=== PATIENT | female | born 1985 | race Caucasian/White ===

== ENCOUNTER 2016-12-21 17:59 | Emergency (ER) | payer MEDICAID ==
[2016-12-21] MEDS ORDERED: NS 0.9% 1000 ML* 1,000 ML IV ONE (19:15)
[2016-12-21] MEDS ORDERED: Metoclopramide IV* 5 MG/ML 2 ML VIAL IV SLOW PU ONE (19:15)
[2016-12-21] MEDS ORDERED: Acetaminophen TAB* 325 MG PO ONE (20:03)
[2016-12-21 20:10] LABS: Hematocrit 43 % (35-47); Hemoglobin 14.1 g/dl (12.0-16.0); Mean Corpuscular HGB Conc 33 g/dl (31-36); Mean Corpuscular Hemoglobin 28 pg (27-31); Mean Corpuscular Volume 87 fL (80-97); Mean Platelet Volume 8 um3 (7.4-10.4); Red Blood Count 4.97 10^6/ul (4.0-5.4); Red Cell Distribution Width 14 % (10.5-15); White Blood Count 7.2 10^3/ul (3.5-10.8)
[2016-12-21 20:16] LABS: Urine Bacteria Absent (Absent); Urine Bilirubin Negative (Negative); Urine Glucose Negative (Negative); Urine Nitrite Negative (Negative)
[2016-12-21 20:29] LABS: ALT 103 U/L (7-52); AST 49 U/L (13-39); Albumin 3.5 g/dL (3.2-5.2); Alkaline Phosphatase 151 U/L (34-104); Anion Gap 5 mmol/L (2-11); Blood Urea Nitrogen 6 mg/dL (6-24); CO2 Carbon Dioxide 28 mmol/L (22-32); Chloride 104 mmol/L (101-111); EGFR African American 131.2 (>60); Globulin 3.5 g/dL (2-4); Glucose 87 mg/dL (70-100); Lipase 33 U/L (11.0-82.0); Potassium 3.6 mmol/L (3.5-5.0); Sodium 137 mmol/L (133-145)
--- NOTE | 2016-12-21 20:41 | ED ---
GI/ HPI - HPI Summary HPI Summary: 31F presents with nausea and vomiting for 1 and 1/2 weeks. She states that she did not have her period for 60 days but then 4 days ago her period started so she was concerned she was . She denies any abdominal pain. She states that her nausea is worst with eating and in the morning. She denies any diarrhea , constipation, flank pain, dysuria, hematuria, vaginal discharge. She denies any fever. She has never had this before. She denies any previous abdominal surgeries. She denies any one else being sick. She denies any acid reflux. - History of Current Complaint Chief Complaint: EDNauseaVomitDiarrh Time Seen by Provider: 12/21/16 19:04 Stated Complaint: VOMITING Pain Intensity: 1 - Allergy/Home Medications Allergies/Adverse Reactions: Allergies Allergy/AdvReac Type Severity Reaction Status Date / Time Latex Allergy Itching Verified 06/11/15 19:22 Sulfa Antibiotics Allergy Swelling Verified 06/11/15 19:22 Of Face,Lips,& Throat All 'cillins Allergy Hives Uncoded 06/11/15 19:22 PMH/Surg Hx/FS Hx/Imm Hx Endocrine/Hematology History: Denies: Hx Diabetes, Hx Thyroid Disease Cardiovascular History: Denies: Hx Hypertension Respiratory History: Denies: Hx Asthma, Hx Chronic Obstructive Pulmonary Disease (COPD) GI History: Denies: Hx Ulcer - Surgical History Surgery Procedure, Year, and Place: Gallbladder, April 2015, [place]. T&A. Cyst removal right breast. LEEP - Immunization History Date of Tetanus Vaccine: UTD Date of Influenza Vaccine: UTD Infectious Disease History: No Infectious Disease History: Denies: Hx Clostridium Difficile, Hx Hepatitis, Hx Human Immunodeficiency Virus (HIV), Hx of Known/Suspected MRSA, Hx Shingles, Hx Tuberculosis, Hx Known/ Suspected VRE, Hx Known/Suspected VRSA, History Other Infectious Disease, Traveled Outside the [place] in Last 30 Days - Family History Known Family History: Positive: Hypertension, Diabetes - Social History Alcohol Use: Occasionally Substance Use Type: Reports: Heroin, Other Substance Use Comment - Amount & Last Used: last used 3 weeks ago on suboxone Smoking Status (MU): Current Every Day Smoker Amount Used/How Often: ~ 1 ppd Length of Time of Smoking/Using Tobacco: started ~ age 9 Have You Smoked in the Last Year: Yes Review of Systems Negative: Fever Negative: Chest Pain Negative: Shortness Of Breath Positive: Vomiting, Nausea. Negative: Abdominal Pain, Diarrhea All Other Systems Reviewed And Are Negative: Yes Physical Exam Triage Information Reviewed: Yes Vital Signs On Initial Exam: Initial Vitals Temp Pulse Resp BP Pulse Ox 98.2 F 70 20 123/77 97 12/21/16 18:03 12/21/16 18:03 12/21/16 18:03 12/21/16 18:03 12/21/16 18:03 Vital Signs Reviewed: Yes Appearance: Positive: Well-Appearing Skin: Positive: Warm, Dry Head/Face: Positive: Normal Head/Face Inspection Eyes: Positive: Normal, Conjunctiva Clear ENT: Positive: Normal ENT inspection, Pharynx normal, TMs normal Respiratory/Lung Sounds: Positive: Clear to Auscultation, Breath Sounds Present Cardiovascular: Positive: Normal, RRR Abdomen Description: Positive: Nontender, Soft Bowel Sounds: Positive: Present - Dang Coma Scale Coma Scale Total: 15 Diagnostics - Vital Signs Vital Signs Temp Pulse Resp BP Pulse Ox 12/21/16 19:15 98.2 F 70 20 123/77 97 12/21/16 18:03 98.2 F 70 20 123/77 97 - Laboratory Lab Results: Lab Results 12/21/16 12/21/16 12/21/16 Range/Units 20:00 20:00 20:00 WBC 7.2 (3.5-10.8) 10^3/ul RBC 4.97 (4.0-5.4) 10^6/ul Hgb 14.1 (12.0-16.0) g/dl Hct 43 (35-47) % MCV 87 (80-97) fL MCH 28 (27-31) pg MCHC 33 (31-36) g/dl RDW 14 (10.5-15) % Plt Count 201 (150-450) 10^3/ul MPV 8 (7.4-10.4) um3 Neut % (Auto) 39.8 (38-83) % Lymph % (Auto) 48.4 H (25-47) % [place] % (Auto) 10.3 H (1-9) % Eos % (Auto) 1.0 (0-6) % Baso % (Auto) 0.5 (0-2) % Absolute Neuts (auto) 2.8 (1.5-7.7) 10^3/ul Absolute Lymphs (auto) 3.5 (1.0-4.8) 10^3/ul Absolute Monos (auto) 0.7 (0-0.8) 10^3/ul Absolute Eos (auto) 0.1 (0-0.6) 10^3/ul Absolute Basos (auto) 0 (0-0.2) 10^3/ul Absolute Nucleated RBC 0.01 10^3/ul Nucleated RBC % 0.1 Sodium 137 (133-145) mmol/L Potassium 3.6 (3.5-5.0) mmol/L Chloride 104 (101-111) mmol/L Carbon Dioxide 28 (22-32) mmol/L Anion Gap 5 (2-11) mmol/L BUN 6 (6-24) mg/dL Creatinine 0.67 (0.51-0.95) mg/dL Est GFR ( Amer) 131.2 (>60) Est GFR (Non-Af Amer) 102.0 (>60) BUN/Creatinine Ratio 9.0 (8-20) Glucose 87 (70-100) mg/dL Calcium 9.0 (8.6-10.3) mg/dL Total Bilirubin 0.70 (0.2-1.0) mg/dL AST 49 H (13-39) U/L ALT 103 H (7-52) U/L Alkaline Phosphatase 151 H (34-104) U/L C-React Prot High Sens 14.84 mg/L Total Protein 7.0 (6.4-8.9) g/dL Albumin 3.5 (3.2-5.2) g/dL Globulin 3.5 (2-4) g/dL Albumin/Globulin Ratio 1.0 (1-3) Lipase 33 (11.0-82.0) U/L Beta HCG, Quant < 0.60 mIU/mL Urine Color [place] Urine Appearance Cloudy Urine pH 6.0 (5-9) Ur Specific [place] 1.033 H (1.010-1.030) Urine Protein 2+(100 mg/dl) H (Negative) Urine Ketones Negative (Negative) Urine Blood 3+ H (Negative) Urine Nitrate Negative (Negative) Urine Bilirubin Negative (Negative) Urine Urobilinogen Negative (Negative) Ur Leukocyte Esterase Trace H (Negative) Urine WBC (Auto) Trace(0-5/hpf) (Absent) Urine RBC (Auto) 3+(>10/hpf) H (Absent) Ur Squamous Epith Cells Present H (Absent) Urine Bacteria Absent (Absent) Urine Glucose Negative (Negative) Urine Ascorbic Acid * H (Negative) Result Diagrams: 12/21/16 20:00 12/21/16 20:00 Lab Statement: Any lab studies that have been ordered have been reviewed, and results considered in the medical decision making process. GIGU Course/Dx - Course Course Of Treatment: 31F presents with nausea and vomiting for 1 and 1/2 weeks. She states that she did not have her period for 60 days but then 4 days ago her period started so she was concerned she was . She denies any abdominal pain. She states that her nausea is worst with eating and in the morning. She denies any diarrhea, constipation, flank pain, dysuria, hematuria, vaginal discharge. She denies any fever. She has never had this before. abdomen nontender. labs normal. explained could be GERD vs gastroenteritis? told to follow up with primary. patient understands and agrees with plan - Diagnoses Differential Diagnoses - Female: Gastritis, Gerd, , Vomiting Provider Diagnoses: Nausea and vomiting Discharge - Discharge Plan Condition: Good Disposition: HOME Prescriptions: Ondansetron ODT TAB* [Zofran 4 MG Odt TAB*] 4 mg PO Q6H PRN #25 tab.odt PRN Reason: Nausea Patient Education Materials: Acute Nausea and Vomiting (ED) Referrals: CHACHO Sheth [Primary Care Provider] - Additional Instructions: Take zofran every 6 hours for nausea Consider adding tums to see if helps symptoms Follow up with primary care physician and obgyn Return to ED if develop any new or worsening symptoms
[2016-12-21 21:36] VITALS: BP 96/64
== END 2016-12-21 21:35 | disposition home or self-care (01) ==
LOC: ED 17:59
DX: R11.2 Nausea with vomiting, unspecified (principal); F17.210 Nicotine dependence, cigarettes, uncomplicated
CPT/HCPCS: 36415; 80053; 81003; 81015; 83690; 84702; 85025; 86141; 87086; 96374; 99282; A9270-GY

== ENCOUNTER 2018-12-26 16:04 | Emergency (ER) | payer OTHER ==
[2018-12-26 16:16] VITALS: BP 128/79
--- NOTE | 2018-12-26 16:57 | UC ---
Skin Complaint HPI - HPI Summary HPI Summary: 33-year-old female presents with complaints of an infected bug bite to her right elbow. Patient states she sustained the bite one week ago. Reports over the last 4-5 days it has become increasingly more red and tender and for the past 2 days she has noted that the center of the wound has turned white in color and there has been some purulent drainage. Patient is a former IV drug user and states that she has had issues with abscesses in the past however has no known history of MRSA. Denies fever or chills. - History of Current Complaint Chief Complaint: UCSkin Time Seen by Provider: 12/26/18 16:52 Stated Complaint: BUG BITE Hx Obtained From: Patient Hx Last Menstrual Period: [id number] Pain Intensity: 0 - Allergy/Home Medications Allergies/Adverse Reactions: Allergies Allergy/AdvReac Type Severity Reaction Status Date / Time latex Allergy Itching Verified 12/26/18 16:18 Penicillins Allergy Edema Verified 12/26/18 16:18 Sulfa (Sulfonamide Allergy Swelling Verified 12/26/18 16:18 Antibiotics) Of Face,Lips,& Throat Home Medications: Home Medications Ibuprofen TAB* [Motrin TAB* 800 MG] 800 mg PO Q6H PRN 12/26/18 [History Confirmed 12/26/18] PMH/Surg Hx/FS Hx/Imm Hx Previously Healthy: Yes - Denies significant PMH Other History Of: Hepatitis C - Surgical History Surgical History: Yes Surgery Procedure, Year, and Place: Gallbladder, April 2015, [place]. T&A. Cyst removal right breast. LEEP - Family History Known Family History: Positive: Hypertension, Diabetes - Social History Occupation: Employed Full-time Lives: With Family Alcohol Use: Occasionally Substance Use Type: Heroin - Previous IV drug use, Marijuana - Last used today Smoking Status (MU): Current Every Day Smoker Amount Used/How Often: ~ 1 ppd Length of Time of Smoking/Using Tobacco: started ~ age 9 Have You Smoked in the Last Year: Yes - Immunization History Most Recent Tetanus Shot: unknown Review of Systems All Other Systems Reviewed And Are Negative: Yes Constitutional: Negative: Fever, Chills Skin: Positive: Other - See HPI Respiratory: Positive: Negative Cardiovascular: Positive: Negative Gastrointestinal: Positive: Negative Genitourinary: Positive: Negative Musculoskeletal: Positive: Negative Neurological: Positive: Negative Is Patient Immunocompromised?: No Physical Exam - Summary Physical Exam Summary: GENERAL APPEARANCE: Well developed, well nourished, alert and cooperative, and appears to be in no acute distress. CARDIAC: Normal S1 and S2. No S3, S4 or murmurs. Rhythm is regular. There is no peripheral edema, cyanosis or pallor. Extremities are warm and well perfused. Capillary refill is less than 2 seconds. Peripheral pulses intact. LUNGS: Clear to auscultation without rales, rhonchi, wheezing or diminished breath sounds. ABDOMEN: Positive bowel sounds. Soft, nondistended, nontender. No guarding or rebound. No masses or hepatosplenomegally. MUSKULOSKELETAL: ROM intact to all extremities. No joint erythema or tenderness. Normal muscular development. Normal gait. EXTREMITIES: 6.5 cm area of erythema and induration to the lateral aspect of the right elbow with a 1 cm central area of white-colored non-viable tissue. SKIN: Skin normal color, texture and turgor with no lesions or eruptions. Triage Information Reviewed: Yes Vital Signs: Initial Vital Signs Temp 98.7 F 12/26/18 16:10 Pulse 77 12/26/18 16:10 Resp 16 12/26/18 16:10 BP 128/79 12/26/18 16:10 Pulse Ox 98 12/26/18 16:10 Vital Signs Reviewed: Yes Procedures - Procedure Summary Procedure Summary: Procedural note: Wound debribement right elbow. The 1 cm area of non-viable tissue in the central portion of the right elbow wound was carefully removed in its entirety using a sterile cotton-tipped applicator down to the superficial muscle layer. A wound culture was obtained and sent. A wet-to-dry dressing was applied by the RN and patient was instructed on how to perform these dressings. Patient tolerated procedure well. Course/Dx - Course Course Of Treatment: 33-year-old female presents with complaints of an infected bug bite to her right elbow. Patient states she sustained the bite one week ago. Reports over the last 4-5 days it has become increasingly more red and tender and for the past 2 days she has noted that the center of the wound has turned white in color and there has been some purulent drainage. Patient is a former IV drug user and states that she has had issues with abscesses in the past however has no known history of MRSA. Denies fever or chills. Afebrile. Vital signs stable. Patient had a 6.5 cm area of erythema and induration to the lateral aspect of the right elbow with a 1 cm central area of white-colored non-viable tissue. I was able to debride the nonviable tissue using a sterile cotton- tipped applicator. The wound was noted to extend down into the superficial muscular layer. A wound culture was obtained and sent. Patient was given naproxen 500 mg PO for pain. A wet-to-dry dressing was applied by the RN and instructions on continued dressing changes twice daily was provided to the patient. She is to start clindamycin 300 mg 3 times a day 7 days. Patient is to follow-up at the [facility] wound clinic within 5-7 days for further evaluation and treatment. Anticipatory guidance and warning symptoms are reviewed with the patient. Verbalizes understanding and agrees with plan of care. - Differential Diagnoses - Skin Complaint Differential Diagnoses: Abscess, Cellulitis, Local Allergic Reaction - Diagnoses Provider Diagnosis: Infected wound Discharge - Sign-Out/Discharge Documenting (check all that apply): Patient Departure All imaging exams completed and their final reports reviewed: No Studies - Discharge Plan Condition: Stable Disposition: HOME Prescriptions: Clindamycin HCl 300 mg PO TID #21 capsule Fluconazole [Diflucan] 150 mg PO ONCE #1 tablet Naproxen [Naproxen 500 mg tab] 500 mg PO BID PRN #30 tablet PRN Reason: Pain Patient Education Materials: Wound Infection (ED) Referrals: Charles Cameron MD [Primary Care Provider] - Additional Instructions: You have an open infected wound to your right elbow. I was able to remove the tissue from the center of the wound to allow for healing. A culture of the wound was obtained and sent to the lab to see what bacteria grows out to make sure that the antibiotic that I have placed her on would be effective. Start clindamycin 300 mg 1 capsule 3 times a day for the next 7 days. Be sure to take the entire prescription even if your symptoms are improving. Use naproxen 500 mg 1 tablet every 12 hours as needed for pain. You're given a dose here in the clinic at 5:15 PM. Perform a wet-to-dry dressings twice daily. Follow up with the [facility] within 5-7 days. Call first thing tomorrow morning to schedule an appointment. Seek immediate medical attention in the emergency room if you develop a fever greater than 100.5 F, you have of ear pain that is not managed with the pain medication, the redness continues to spread, or you have any worsening of symptoms. - Billing Disposition and Condition Condition: STABLE Disposition: Home
[2018-12-26] MEDS ORDERED: Naproxen TAB* 250 MG PO ONE (17:10)
== END 2018-12-26 17:37 | disposition home or self-care (01) ==
LOC: UCEAST 16:04
DX: S50.361A Insect bite (nonvenomous) of right elbow, initial encounter (principal); L08.9 Local infection of the skin and subcutaneous tissue, unspecified; W57.XXXA Bitten or stung by nonvenomous insect and other nonvenomous arthropods, initial encounter; Y92.9 Unspecified place or not applicable; B19.20 Unspecified viral hepatitis C without hepatic coma; F17.210 Nicotine dependence, cigarettes, uncomplicated; Z88.0 Allergy status to penicillin; Z88.2 Allergy status to sulfonamides; Z91.040 Latex allergy status
CPT/HCPCS: 87070; 87205; 87640; 87641; 99212; A9270-GY; G0463